=== PATIENT | female | born 1995 | race Caucasian/White ===

== ENCOUNTER 2016-03-31 06:01 | Emergency (ER) | payer BC, OTHER ==
[~2016-03-31 06:01] MED LIST: ALBU8I INH; BENZ1CAP34 PO; CETI10 PO; FLON0.053; PROM6.257 PO; ZITH250T PO
--- NOTE | 2016-03-31 06:47 | PD ---
HPI Chief Complaint Contractions Date Seen: Mar 31, 2016 Time Seen: 06:30 Travel History International Travel<30 Days: No Contact w/Intl Traveler<30Days: No Known Affected Area: No History of Present Illness HPI 20-year-old at 38 weeks and 4 days of gestation, [place] 04/10/2016, patient presents to OB ED with complaints of contractions occurring every 5-10 minutes, upon evaluation patient is shazia occasionally, she denies leakage of fluids, vaginal bleeding and decreased movement. care is with Dr. Howard, course is significant for episode of labor at 32 weeks during this for which patient was admitted and treated with betamethasone 2 doses. Para: 0 : 1 Miscarriage: 0 : 0 History Past Medical History Narrative Medical Significant for upper respiratory tract infection, allergic rhinitis Obstetric History Obstetric History Primigravida, labor at 32 weeks during this current Past Surgical History Narrative Surgical Denies Surgical History: No Previous Surgery Family History Narrative Family History Unremarkable Family History: Negative Social History Alcohol Use: No Tobacco Use: No Substance Abuse: No Allergies-Medications (Allergen,Severity, Reaction): Coded Allergies: No Known Allergies (Unverified , 09/14/14) Home Meds Active Scripts Albuterol Sulfate 8 GM Inhaler (Ventolin Hfa)8 Gm Aero2 Puff INH Q6 #1 BOX Ref 0 Prov:Manny Mancuso MD 11/10/14 Fluticasone Propionate (Flonase)0.05 % Naspr2 Spr NA DAILY #1 BOX Ref 2 2 SPRAYS EACH NOSTRIL Prov:Manny Mancuso MD 11/06/14 Azithromycin (Zithromax Z-Darion)250 Mg Pdn222 Mg PO DIRECTED #6 TAB Ref 0 500 MG (2 TABLETS) PO ON DAY 1, THEN 250 MG (1 TABLET) PO ON DAYS 2 TO 5. Prov:Manny Mancuso MD 11/06/14 Promethazine P6.25 - 6.25-10 mg/5 ml Ml0.5 Tsp PO HS PRN (severe cough) #100 ML Ref 0 Up to a whole teaspoon may be taken. (Sedating). Prov:Manny Mancuso MD 11/06/14 Benzonatate 200 Mg [id number] Mg PO Q8H PRN (cough) #30 CAP Ref 0 Prov:Manny Mancuso MD 11/06/14 Reported Medications Cetirizine HCl (Zyrtec 10 Mg Tab)10 Mg Tab10 Mg PO DAILY 11/06/14 Review of Systems Except as stated in HPI: all other systems reviewed are Neg Genitourinary: Other (contractions) Physical Exam Narrative GENERAL: Well-nourished, well-developed patient. SKIN: Warm and dry. HEAD: Normocephalic and atraumatic. EYES: No scleral icterus. No injection or drainage. ENT: No nasal drainage noted. Mucous membranes pink. Airway patent. NECK: Supple, trachea midline. No JVD. CARDIOVASCULAR: Regular rate and rhythm without murmurs, gallops, or rubs. RESPIRATORY: Breath sounds equal bilaterally. No accessory muscle use. BREASTS: Bilateral exam showed no masses , no retractions, no nipple discharge. ABDOMEN/GI: Abdomen soft, gravid, non-tender, bowel sounds present, no rebound, no guarding Gravid to 39 weeks size Fundal Height: 39 cm GENITOURINARY: External Genitalia: intact and normal in appearance BUS glands:, Normal Cervix: 1 cm, 50%, -3, posterior Dilatation: 1 cm Effacement: 50% Station: -3 Presentation: Cephalic Membranes: Intact Uterine Contractions: Occasional FHT's: Category: one Baseline: 130s Reactive: Yes Variability: Moderate Decels: None EXTREMITIES: No cyanosis or edema. BACK: Nontender without obvious deformity. No CVA tenderness. NEUROLOGICAL: Awake and alert. Motor and sensory grossly within normal limits. Five out of 5 muscle strength in all muscle groups. Normal speech. Data Data Vital Signs Reviewed: Yes [facility] Medical Record Reviewed: Yes Diagnosis Diagnosis: Primary Impression: 39 weeks gestation of Additional Impression: False labor after 37 weeks of gestation without delivery Disposition: 01 DISCHARGE HOME Condition: Stable Patient Instructions: Early Labor Signs (ED), General Instructions Additional Instructions: Patient instructed to return to labor and delivery if increase cramping, contractions, leakage of fluids, vaginal bleeding, or decreased movement. Drink plenty of fluids. Monitor kick counts. Keep office appointment as scheduled. Bill White MD Mar 31, 2016 06:47
[2016-03-31 07:00] LABS: BACTERIA, URINE RARE /hpf; BLOOD, URINE NEG (NEG); COMMENT (UR) CULT NOT INDICATED; CULTURE IF INDICATED CULT NOT INDICATED; GLUCOSE,URINE NEG (NEG); KETONE, URINE NEG (NEG); NITRITE,URINE NEG (NEG); PH, URINE 5.5 (5.0-8.5); SQUAMOUS EPITHELIAL CELL URINE 6 /hpf (0-5); URINE COLOR LIGHT-YELLOW (YELLW/STRAW)
== END 2016-03-31 06:57 | disposition home or self-care (01) ==
LOC: HOBED 06:01
DX: O47.1 False labor at or after 37 completed weeks of gestation (principal); Z3A.37 37 weeks gestation of pregnancy
CPT/HCPCS: 81001; 99283

== ENCOUNTER 2016-04-03 07:52 | Inpatient (IN) | payer OTHER ==
[2016-04-03] MEDS ORDERED: LACTATED RINGER'S 1000 ML INJ 1,000 ML IV SCH (07:57)
[2016-04-03] MEDS ORDERED: LACTATED RINGER'S 1000 ML INJ 1,000 ML IV PRN (07:57)
[2016-04-03] MEDS ORDERED: CITRIC ACID-SODIUM CITRATE LIQ 30 ML UDC PO SCH (08:00)
[2016-04-03] MEDS ORDERED: LIDOCAINE HCL 1% 50 ML VIAL INFIL PRN (08:00)
[2016-04-03] MEDS ORDERED: OXYTOCIN 30 UNITS-500ML PREMIX 500 ML IV SCH (08:00)
[2016-04-03] MEDS ORDERED: LIDOCAINE HCL 1% 50 ML VIAL I-DERMAL PRN (08:00)
[2016-04-03] MEDS ORDERED: MINERAL OIL 10 ML VIAL TOPICAL PRN (08:00)
[2016-04-03] MEDS ORDERED: OXYTOCIN 30 UNITS-500ML PREMIX 500 ML IV ONE (08:00)
[2016-04-03] MEDS ORDERED: SODIUM CHLORID 0.9% 500 ML INJ 500 ML IV PRN (08:00)
[2016-04-03] MEDS ORDERED: SODIUM CHLOR 0.9% 1000 ML INJ 1,000 ML IV PRN (08:17)
[2016-04-03 09:08] LABS: AUTOMATED NEUTROPHIL # 7.6 TH/MM3 (1.8-7.7); BASOPHIL % 0.2 % (0.0-2.0); EOSINOPHIL % 0.3 % (0.0-4.0); HEMO FLAGS DIFF FINAL; LYMPH % 17.4 % (9.0-44.0); LYMPHOCYTE # 1.7 TH/MM3 (1.0-4.8); MEAN CELL VOLUME 87.9 FL (80.0-100.0); MEAN CORPUSCULAR HEMOGLOBIN 30.2 PG (27.0-34.0); MEAN CORPUSCULAR HGB CONC 34.3 % (32.0-36.0); MONO % 6.1 % (0.0-8.0); PLATELET COUNT 235 TH/MM3 (150-450); RED BLOOD COUNT 3.98 MIL/MM3 (4.00-5.30); RED CELL DISTRIBUTION WIDTH 11.8 % (11.6-17.2)
[2016-04-03 09:32] LABS: BACTERIA, URINE FEW /hpf; BLOOD, URINE NEG (NEG); COMMENT (UR) CULT NOT INDICATED; CULTURE IF INDICATED CULT NOT INDICATED; GLUCOSE,URINE NEG (NEG); KETONE, URINE NEG (NEG); MUCUS URINE FEW /lpf (OCC); NITRITE,URINE NEG (NEG); PH, URINE 5.5 (5.0-8.5); SQUAMOUS EPITHELIAL CELL URINE 5 /hpf (0-5); URINE COLOR YELLOW (YELLW/STRAW)
[2016-04-03 10:01] VITALS: BP 122/98; PULSE 97
[2016-04-03 10:09] VITALS: RESP 20
[2016-04-03] MEDS ORDERED: ONDANSETRON HCL 4 MG/2 ML VIAL ONE (12:39)
[2016-04-03] MEDS ORDERED: fentaNYL 2MCG-BUPIV 0.125% INJ 100 ML ONE (13:24)
[2016-04-03] MEDS ORDERED: ePHEDrine/NS 25 MG/5 ML SYR ONE (13:25)
[2016-04-03] MEDS ORDERED: ONDANSETRON HCL 4 MG/2 ML VIAL IV PUSH PRN (13:45)
[2016-04-03] MEDS ORDERED: DO NOT ADMINISTER ANTICOAGULANTS XX PRN (15:00)
[2016-04-03] MEDS ORDERED: fentaNYL 2MCG-BUPIV 0.125% INJ 100 ML EPIDURAL SCH (15:00)
[2016-04-03] MEDS ORDERED: ePHEDrine/NS 50 MG/5 ML SYR IV PRN (15:00)
[2016-04-03] MEDS ORDERED: NO SYSTEM NARCOTICS XX PRN (15:00)
[2016-04-03 15:45] VITALS: BP 129/74; PULSE 90
[2016-04-03 16:00] VITALS: BP 120/67; PULSE 97
[2016-04-03] MEDS ORDERED: MEASLES, MUMPS, RUBELLA VACCINE 0.5 ML VIAL SQ ONE (16:00)
[2016-04-03] MEDS ORDERED: DIPHTH/TETANUS/ACEL PERTUSSIS (BOOSTER) 0.5 ML VIAL/PFS IM ONE (16:00)
--- NOTE | 2016-04-03 17:08 | PD.OB.DELI ---
Anesthesia: Epidural Episiotomy: None Vaginal Delivery: Normal Presentation: Occiput anterior Nuchal Cord: None Infant: Female One Minute : 9 Five Minute : 9 Weight: 7 4 Care: Suctioned Placenta: Spontaneous delivery, Intact, 3 vessel cord Laceration: 1 deg Repair: Chromic running (45 secodn delay to cord clamp doing well) Shanna Howard MD Apr 03, 2016 17:08
[2016-04-03] MEDS ORDERED: WITCH HAZEL 50%/GLYCERIN 12.5% 40 PAD JAR TOPICAL PRN (17:15)
[2016-04-03] MEDS ORDERED: ZOLPIDEM TARTRATE 5 MG TAB PO PRN (17:15)
[2016-04-03] MEDS ORDERED: BENZOCAINE 20% TOPICAL SPRAY 60 ML CAN TOPICAL PRN (17:15)
[2016-04-03] MEDS ORDERED: ALUMINUM/MAGNESIUM/SIMETH 30 ML CUP PO PRN (17:15)
[2016-04-03] MEDS ORDERED: ONDANSETRON ODT 4 MG TAB PO PRN (17:15)
[2016-04-03] MEDS ORDERED: ACETAMINOPHEN 325 MG TAB PO PRN (17:15)
[2016-04-03] MEDS ORDERED: SODIUM CHLORIDE 0.9% FLUSH 5 ML FLUSH IV PRN (17:15)
[2016-04-03] MEDS: IBUPROFEN 600 MG TAB PO PRN (19:45)
[2016-04-03] MEDS ORDERED: SODIUM CHLORIDE 0.9% FLUSH 5 ML FLUSH IV SCH (21:00)
[2016-04-03] MEDS: DOCUSATE SODIUM 50 MG/SENNA 8.6 MG TAB PO PRN (21:01)
[2016-04-03] MEDS: oxyCODONE/ACETAMINOPHEN 5 MG/325 MG TAB PO PRN (21:01)
[2016-04-04] MEDS: IBUPROFEN 600 MG TAB PO PRN ×4 (02:00→22:51)
[2016-04-04] MEDS: oxyCODONE/ACETAMINOPHEN 5 MG/325 MG TAB PO PRN ×3 (02:00→17:03)
[2016-04-04] MEDS ORDERED: OXYC1TAB63 PO (08:34)
[2016-04-04] MEDS ORDERED: IBUP-232 PO (08:34)
--- NOTE | 2016-04-04 08:35 | HHI.OB ---
Subjective Post Day: 1 Remarks Doing well, some back pain today and taking motrin and percocet Tolerating diet and baby is doing well. Objective Vitals/I&O Vital Signs Date Time Temp Pulse Resp B/P Pulse Ox O2 Delivery O2 Flow Rate FiO2 04/03/16 16:00 97 120/67 04/03/16 15:45 90 129/74 04/03/16 10:09 20 04/03/16 10:01 97 122/98 Objective Remarks GENERAL: Well-nourished, well-developed patient. CARDIOVASCULAR: Regular rate and rhythm without murmurs, gallops, or rubs. RESPIRATORY: Breath sounds equal bilaterally. No accessory muscle use. ABDOMEN/GI: Abdomen soft, non-tender. Fundus: Firm, non-tender at umbilicus. GENITOURINARY: Light to moderate bleeding. EXTREMITIES: No cyanosis or edema, non-tender, without signs of DVT. Medications and IVs Current Medications Medications (Trade) Dose Ordered Sig/Yamil Route Start Time Stop Time Status Last Admin Lactated Ringer's 1,000 ml @ 125 mls/hr Q8H IV 04/03/16 07:57 04/03/16 09:06 Lactated Ringer's 1,000 ml @ 3,000 mls/hr Q20M PRN IV 04/03/16 07:57 (NS 1000 ml Inj) 1,000 ml @ 100 mls/hr Q10H PRN IV 04/03/16 08:17 (fentaNYL INJ) 50 mcg Q1H PRN IV PUSH 04/03/16 08:00 (fentaNYL INJ) 100 mcg Q1H PRN IV PUSH 04/03/16 08:00 04/03/16 13:19 Mineral Oil 10 ml 10 ml UNSCH PRN TOPICAL 04/03/16 08:00 (Pitocin 30 Units-NS 500 ml Premix) 500 ml @ 0 mls/hr TITRATE IV 04/03/16 08:00 04/03/16 09:05 (Zofran Inj) 4 mg Q6H PRN IV PUSH 04/03/16 13:45 Miscellaneous Information No systemic narcotics to be given except... UNSCH PRN XX 04/03/16 15:00 04/04/16 14:59 Miscellaneous Information DO NOT ADMINISTER ANY ANTICOAGUL... UNSCH PRN XX 04/03/16 15:00 04/04/16 14:59 (fentaNYL 2MCG-BUPIV 0.125% INJ) 100 ml @ 0 mls/hr TITRATE EPIDURAL 04/03/16 15:00 (ePHEDrine/NS 50 MG/5 ML SYR) 10 mg UNSCH PRN IV 04/03/16 15:00 04/04/16 14:59 (NS Flush) 2 ml BID IV 04/03/16 21:00 (NS Flush) 2 ml UNSCH PRN IV 04/03/16 17:15 (Tylenol) 650 mg Q4H PRN PO 04/03/16 17:15 (Motrin) 600 mg Q6H PRN PO 04/03/16 17:15 04/04/16 02:00 (Americaine 20% Top Spr) 1 spray Q4H PRN TOPICAL 04/03/16 17:15 04/03/16 20:41 (Tucks Pads) 1 applic QID PRN TOPICAL 04/03/16 17:15 04/03/16 20:41 (Roxann-Colace) 2 tab Q12H PRN PO 04/03/16 17:15 04/03/16 21:01 (Ambien) 5 mg HS PRN PO 04/03/16 17:15 (Mag-Al Plus Susp Liq) 15 ml Q8H PRN PO 04/03/16 17:15 (Zofran Odt) 4 mg Q6H PRN PO 04/03/16 17:15 (Percocet 5-325 Mg) 1 tab Q4H PRN PO 04/03/16 20:30 04/04/16 02:00 (Percocet 5-325 Mg) 2 tab Q4H PRN PO 04/03/16 20:30 04/03/16 21:01 Assessment/Plan Assessment and Plan PPD#1 Doing well Home tomorrow if stable, Cleve Ahn MD Apr 04, 2016 08:35
[2016-04-04] MEDS: DOCUSATE SODIUM 50 MG/SENNA 8.6 MG TAB PO PRN (17:03)
[2016-04-04 20:09] VITALS: BP 122/70; PULSE 84; RESP 16; TEMP 98.4
[2016-04-05] MEDS: oxyCODONE/ACETAMINOPHEN 5 MG/325 MG TAB PO PRN (04:00)
[2016-04-05] MEDS: DOCUSATE SODIUM 50 MG/SENNA 8.6 MG TAB PO PRN (07:24)
[2016-04-05] MEDS: IBUPROFEN 600 MG TAB PO PRN (07:24)
[2016-04-05 08:00] VITALS: BP 122/75; PULSE 95; RESP 18; TEMP 98.3
[2016-04-05 09:00] VITALS: RESP 16
--- NOTE | 2016-04-05 09:14 | HHI.OB ---
Subjective Post Day: 2 Remarks doing well nursing fine no issues Objective Vitals/I&O Vital Signs Date Time Temp Pulse Resp B/P Pulse Ox O2 Delivery O2 Flow Rate FiO2 04/05/16 08:00 98.3 95 18 122/75 04/04/16 20:09 98.4 84 16 122/70 Objective Remarks GENERAL: Well-nourished, well-developed patient. CARDIOVASCULAR: Regular rate and rhythm without murmurs, gallops, or rubs. RESPIRATORY: Breath sounds equal bilaterally. No accessory muscle use. ABDOMEN/GI: Abdomen soft, non-tender. Fundus: Firm, non-tender at umbilicus. GENITOURINARY: Light to moderate bleeding. EXTREMITIES: No cyanosis or edema, non-tender, without signs of DVT. Medications and IVs Current Medications Medications (Trade) Dose Ordered Sig/Yamil Route Start Time Stop Time Status Last Admin Lactated Ringer's 1,000 ml @ 125 mls/hr Q8H IV 04/03/16 07:57 04/03/16 09:06 Lactated Ringer's 1,000 ml @ 3,000 mls/hr Q20M PRN IV 04/03/16 07:57 (NS 1000 ml Inj) 1,000 ml @ 100 mls/hr Q10H PRN IV 04/03/16 08:17 (fentaNYL INJ) 50 mcg Q1H PRN IV PUSH 04/03/16 08:00 (fentaNYL INJ) 100 mcg Q1H PRN IV PUSH 04/03/16 08:00 04/03/16 13:19 Mineral Oil 10 ml 10 ml UNSCH PRN TOPICAL 04/03/16 08:00 (Pitocin 30 Units-NS 500 ml Premix) 500 ml @ 0 mls/hr TITRATE IV 04/03/16 08:00 04/03/16 09:05 Ondansetron HCl 4 mg 4 mg Q6H PRN IV PUSH 04/03/16 13:45 (fentaNYL 2MCG-BUPIV 0.125% INJ) 100 ml @ 0 mls/hr TITRATE EPIDURAL 04/03/16 15:00 (NS Flush) 2 ml BID IV 04/03/16 21:00 (NS Flush) 2 ml UNSCH PRN IV 04/03/16 17:15 (Tylenol) 650 mg Q4H PRN PO 04/03/16 17:15 (Motrin) 600 mg Q6H PRN PO 04/03/16 17:15 04/05/16 07:24 (Americaine 20% Top Spr) 1 spray Q4H PRN TOPICAL 04/03/16 17:15 04/03/16 20:41 (Tucks Pads) 1 applic QID PRN TOPICAL 04/03/16 17:15 04/03/16 20:41 (Roxann-Colace) 2 tab Q12H PRN PO 04/03/16 17:15 04/05/16 07:24 (Ambien) 5 mg HS PRN PO 04/03/16 17:15 (Mag-Al Plus Susp Liq) 15 ml Q8H PRN PO 04/03/16 17:15 (Zofran Odt) 4 mg Q6H PRN PO 04/03/16 17:15 (Percocet 5-325 Mg) 1 tab Q4H PRN PO 04/03/16 20:30 04/04/16 17:03 (Percocet 5-325 Mg) 2 tab Q4H PRN PO 04/03/16 20:30 04/05/16 04:00 Assessment/Plan Assessment and Plan PPD 2 doing very well counseled and discharge RTO 6 weeks or prn Shanna Howard MD Apr 05, 2016 09:14
--- NOTE | 2016-04-05 09:16 | HHI.DCPOC ---
Discharge Care Plan Report Symptoms to Your Doctor -Temperate above 100.5 degrees -Redness, of incision or excessive or foul smelling drainage -Unusual pain or calf pain -Increased vaginal bleeding -Painful or difficulty urinating -Feelings of extreme sadness or anxiety after 2 weeks Goals to Promote Your Health * To prevent worsening of your condition and complications * To maintain your health at the optimal level Directions to Meet Your Goals Take your medications as prescribed Follow your dietary instruction Follow activity as directed Ensure plenty of rest for recovery Drink fluids for hydration Keep your appointments as scheduled Take your immunizations and boosters as scheduled If your symptoms worsen call your PCP, if no PCP go to Urgent Care Center or Emergency Room Smoking is Dangerous to Your Health. Avoid second hand smoke Call the 24-hour crisis hotline for domestic abuse at Shanna Howard MD Apr 05, 2016 09:16
== END 2016-04-05 13:25 | disposition home or self-care (01) | DRG 775 ==
LOC: H2EB 07:52 → H1EA 19:46
PROVIDERS: ADMIT Obstetrics & Gynecology; ATTEND Obstetrics & Gynecology
PROC: 10E0XZZ Delivery of Products of Conception, External Approach (ICD-10-PCS; principal; 2016-04-03)
PROC: 0HQ9XZZ Repair Perineum Skin, External Approach (ICD-10-PCS; 2016-04-03)
PROC: 3E0R3CZ (ICD-10-PCS; 2016-04-03)
PROC: 00HU33Z Insertion of Infusion Device into Spinal Canal, Percutaneous Approach (ICD-10-PCS; 2016-04-03)
DX: O70.0 First degree perineal laceration during delivery (principal); Z37.0 Single live birth; Z3A.00 Weeks of gestation of pregnancy not specified
CPT/HCPCS: 59025; 81001; 85025; 86900; 86901; 99283; J2405; J2590; J3010; J7120